=== PATIENT | female | born 1980 | race African-American/Black ===

== ENCOUNTER 2020-11-18 18:27 | Emergency (ER) | payer OTHER ==
[2020-11-18 18:52] VITALS: PULSE 87; TEMP 98; BMI 33.4
[2020-11-18 18:59] VITALS: BP 106/63
[2020-11-18] MEDS ORDERED: METHOCARBAMOL 500 MG TABLET PO ONE (19:50)
[2020-11-18] MEDS ORDERED: IBUPROFEN 600 MG TABLET (FP) PO ONE ×2 (19:50→20:09)
[2020-11-18] MEDS ORDERED: METHOCARBAMOL 500 MG TABLET ONE (20:09)
== END 2020-11-18 21:10 | disposition home or self-care (01) ==
LOC: JERFT 18:27
DX: R07.9 Chest pain, unspecified (principal); M62.830 Muscle spasm of back; V49.40XA Driver injured in collision with unspecified motor vehicles in traffic accident, initial encounter
CPT/HCPCS: 71046-TC-FY; 99283-25